=== PATIENT | female | born 1985 | race Caucasian/White ===

== ENCOUNTER 2016-11-10 20:33 | Inpatient (IN) | payer OTHER ==
[~2016-11-10] VITALS: Ht 175.3 cm; Wt 69.5 kg
[2016-11-10] MEDS: PENICILLIN GK 2,500,000 UNITS in DEXTROSE 5% 100 ML IVPB SCH ×2 (00:20→12:20)
[2016-11-10] MEDS ORDERED: FENTANYL PF 100 MCG/2ML ONE ×2 (20:40→21:24)
[2016-11-10] MEDS ORDERED: OXYTOCIN 30U/ 0.9% NaCL 500ML 500 ML IV PRN (20:41)
[2016-11-10] MEDS: D5%-LACTATED RINGERS 1,000 ML IV SCH (20:41)
[2016-11-10] MEDS ORDERED: OXYTOCIN 30U/ 0.9% NaCL 500ML 500 ML IV ONE (20:41)
[2016-11-10] MEDS ORDERED: LIDOCAINE 1%, 20ML ONE ×2 (20:47→21:34)
[2016-11-10] MEDS ORDERED: NEWBORN KIT ONE (20:47)
[2016-11-10] MEDS ORDERED: MISOPROSTOL 200 MCG TABLET ONE (20:48)
[2016-11-10] MEDS ORDERED: OXYTOCIN 30U/ 0.9% NaCL 500ML 500 ML ONE (20:48)
[2016-11-10] MEDS: LACTATED RINGERS 1,000 ML IV SCH ×3 (20:50→22:05)
[2016-11-10] MEDS: FENTANYL PF 100 MCG/2ML IVPush PRN ×2 (20:50→21:29)
[2016-11-10] MEDS: PLEASE ENTER HEIGHT AND WEIGHT MC SCH (21:00)
[2016-11-10] MEDS: PLEASE ENTER ALLERGIES MC SCH ×2 (21:00)
[2016-11-10] MEDS ORDERED: ALUMINUM/MAG/SIMETHICONE 30 ML UDC PO PRN (21:00)
[2016-11-10] MEDS ORDERED: SODIUM CITRATE/CITRIC ACID 30 ML UDC PO PRN (21:00)
[2016-11-10] MEDS ORDERED: ONDANSETRON 2MG/ML, 2ML IVPush PRN (21:00)
[2016-11-10] MEDS ORDERED: PENICILLIN GK 5,000,000 UNITS in DEXTROSE 5% 100 ML IVPB ONE (21:00)
[2016-11-10 21:23] LABS: HEMATOCRIT 38.8 % (34.6-47.8); HEMOGLOBIN 13.3 g/dL (11.7-16.4); WHITE BLOOD COUNT 15.9 x10^3/uL (3.4-10)
[2016-11-10] MEDS ORDERED: FENTANYL/BUPIV./NS/PF 250 ML EPIDCONT ONE ×2 (21:33→21:34)
[2016-11-10] MEDS ORDERED: LIDOCAINE/PF 1.5%-EPI 1:200K, 30ML ONE (21:34)
[2016-11-10] MEDS ORDERED: EPHEDRINE 50 MG/ML, 1ML ONE (21:34)
[2016-11-10] MEDS ORDERED: FENTANYL/BUPIV./NS/PF 250 ML EPIDCONT SCH (22:05)
[2016-11-10] MEDS ORDERED: EPHEDRINE 50 MG/ML, 1ML IVPush PRN (22:30)
[2016-11-10] MEDS ORDERED: LACTATED RINGERS 1,000 ML IVBOLUS PRN (22:30)
[2016-11-10] MEDS ORDERED: NALOXONE 0.4 MG/ML, 1ML IVPush PRN (22:30)
[2016-11-10 23:25] VITALS: BP 105/66
[2016-11-11] MEDS: PENICILLIN GK 2,500,000 UNITS in DEXTROSE 5% 100 ML IVPB SCH ×2 (01:00→05:00)
[2016-11-11] MEDS: OXYTOCIN 30U/ 0.9% NaCL 500ML 500 ML IV SCH ×9 (01:55→22:49)
[2016-11-11] MEDS ORDERED: OXYTOCIN 30U/ 0.9% NaCL 500ML 500 ML ONE (02:44)
[2016-11-11] MEDS ORDERED: ONDANSETRON 2MG/ML, 2ML IV PRN (03:00)
[2016-11-11] MEDS ORDERED: CARBOPROST TROMETHAMINE 250 MCG/ML, 1ML IM PRN (03:00)
[2016-11-11] MEDS ORDERED: ACETAMINOPHEN 325 MG TABLET PO PRN ×2 (03:00)
[2016-11-11] MEDS ORDERED: METHYLERGONOVINE 0.2 MG/ML IM PRN (03:00)
[2016-11-11] MEDS ORDERED: CALCIUM CARBONATE 500 MG TAB.CHEW PO PRN (03:00)
[2016-11-11] MEDS ORDERED: HYDROcodone/APAP 5/325 TABLET PO PRN (03:00)
[2016-11-11] MEDS ORDERED: MISOPROSTOL 200 MCG TABLET PR PRN (03:00)
[2016-11-11] MEDS: IBUPROFEN 600 MG TABLET PO PRN ×3 (04:00→21:00)
[2016-11-11] MEDS ORDERED: IBUPROFEN 600 MG TABLET ONE (04:09)
[2016-11-11] MEDS: D5%-LACTATED RINGERS 1,000 ML IV SCH (04:41)
[2016-11-11] MEDS: PLEASE ENTER HEIGHT AND WEIGHT MC SCH (05:00)
[2016-11-11] MEDS: PLEASE ENTER ALLERGIES MC SCH ×2 (05:00)
[2016-11-11] MEDS: HYDROcodone/APAP 5/325 TABLET PO PRN ×3 (05:05→13:45)
[2016-11-11 05:25] VITALS: BP 101/63
[2016-11-11] MEDS: LACTATED RINGERS 1,000 ML IV SCH (06:05)
[2016-11-11 08:50] VITALS: BP 94/60
[2016-11-11] MEDS: PRENATAL VIT/IRON/FA 1 EACH TABLET PO SCH (09:07)
[2016-11-11] MEDS: DOCUSATE 100 MG CAPSULE PO PRN ×2 (09:07→21:00)
[2016-11-11 10:39] LABS: HEMOGLOBIN 9.4 g/dL (11.7-16.4); WHITE BLOOD COUNT 14.9 x10^3/uL (3.4-10)
[2016-11-11 12:25] VITALS: BP 99/68
[2016-11-11 20:45] VITALS: BP 95/60
[2016-11-12] MEDS: OXYTOCIN 30U/ 0.9% NaCL 500ML 500 ML IV SCH (04:05)
[2016-11-12] MEDS: HYDROcodone/APAP 5/325 TABLET PO PRN (07:29)
[2016-11-12] MEDS: DOCUSATE 100 MG CAPSULE PO PRN (07:29)
[2016-11-12] MEDS: IBUPROFEN 600 MG TABLET PO PRN (07:29)
[2016-11-12] MEDS: PRENATAL VIT/IRON/FA 1 EACH TABLET PO SCH (07:29)
[2016-11-12 08:00] VITALS: BP 102/64
[2016-11-12] MEDS ORDERED: IBUP-1222 PO (09:46)
[2016-11-12] MEDS ORDERED: OXYC-302 PO (09:46)
== END 2016-11-12 13:29 | disposition home or self-care (01) | DRG 774 ==
LOC: LDOP 20:33 → EDIP 20:45 → LDIP 20:50 → 2NW 11-11 04:50
PROVIDERS: ADMIT Obstetrics & Gynecology Gynecology; ATTEND Obstetrics & Gynecology Gynecology
PROC: 10E0XZZ Delivery of Products of Conception, External Approach (ICD-10-PCS; principal; 2016-11-11)
PROC: 0HQ9XZZ Repair Perineum Skin, External Approach (ICD-10-PCS; 2016-11-11)
PROC: 10907ZC Drainage of Amniotic Fluid, Therapeutic from Products of Conception, Via Natural or Artificial Opening (ICD-10-PCS; 2016-11-11)
PROC: 3E0S3CZ (ICD-10-PCS; 2016-11-11)
PROC: 00HU33Z Insertion of Infusion Device into Spinal Canal, Percutaneous Approach (ICD-10-PCS; 2016-11-11)
DX: O69.81X0 Labor and delivery complicated by cord around neck, without compression, not applicable or unspecified (principal); O67.8 Other intrapartum hemorrhage; O99.824 Streptococcus B carrier state complicating childbirth; Z37.0 Single live birth; O76 Abnormality in fetal heart rate and rhythm complicating labor and delivery; O70.0 First degree perineal laceration during delivery; Z3A.39 39 weeks gestation of pregnancy
CPT/HCPCS: 36415; 82803; 85025; 86850; 86900; J2540; J3010; J3490; J2590; J7120

== ENCOUNTER 2018-06-10 07:00 | Inpatient (IN) | payer OTHER ==
[~2018-06-10] VITALS: Ht 175.3 cm; Wt 75.0 kg
[~2018-06-10 07:00] MED LIST: IBUP-1222 PO; OXYC-302 PO
[2018-06-10] MEDS ORDERED: FENTANYL/BUPIV./NS/PF 250 ML EPIDCONT SCH (07:02)
[2018-06-10] MEDS ORDERED: D5%-LACTATED RINGERS 1,000 ML IV SCH (07:08)
[2018-06-10] MEDS ORDERED: OXYTOCIN 30U/ 0.9% NaCL 500ML 500 ML IV ONE (07:08)
[2018-06-10] MEDS ORDERED: LACTATED RINGERS 1,000 ML IV SCH (07:08)
[2018-06-10] MEDS ORDERED: LIDOCAINE 1%, 20ML ONE (07:13)
[2018-06-10] MEDS ORDERED: NEWBORN KIT ONE (07:13)
[2018-06-10] MEDS ORDERED: OXYTOCIN 30U/ 0.9% NaCL 500ML 500 ML ONE ×2 (07:13→10:42)
[2018-06-10] MEDS ORDERED: MISOPROSTOL 200 MCG TABLET ONE (07:13)
[2018-06-10 07:17] VITALS: BP 113/89
[2018-06-10] MEDS ORDERED: PENICILLIN GK 5,000,000 UNITS in DEXTROSE 5% 100 ML IVPB ONE (07:30)
[2018-06-10] MEDS ORDERED: ONDANSETRON 2MG/ML, 2ML IVPush PRN (07:30)
[2018-06-10] MEDS ORDERED: FENTANYL PF 100 MCG/2ML IVPush PRN (07:30)
[2018-06-10] MEDS ORDERED: FENTANYL PF 100 MCG/2ML IV PRN (07:30)
[2018-06-10 07:33] LABS: BASOPHILS # (AUTO) 0.03 x10^3/uL (0-0.1); BASOPHILS % (AUTO) 0 % (0-1); EOSINOPHILS % (AUTO) 0 % (1-7); LYMPHOCYTES # (AUTO) 1.31 x10^3/uL (1-3.4); LYMPHOCYTES % (AUTO) 13 % (22-44); MD NO; MEAN CORPUSCULAR HEMOGLOBIN 27.9 pg (27.0-34.8); MEAN CORPUSCULAR HGB CONC 32.9 g/dL (32.4-35.8); MEAN CORPUSCULAR VOLUME 84.7 fL (80-100); MEAN PLATELET VOLUME 10.4 fL (7.4-10.4); MONOCYTES % (AUTO) 3 % (2-9); NEUTROPHILS # (AUTO) 8.81 x10^3/uL (1.8-6.8); NEUTROPHILS % (AUTO) 84 % (42-75); PLATELET COUNT 130 x10^3/uL (130-400); RED BLOOD COUNT 4.56 x10^6/uL (3.82-5.3); RED CELL DISTRIBUTION WIDTH 15.1 % (9.6-15.2)
[2018-06-10] MEDS ORDERED: PREN1TAB60 PO (07:42)
[2018-06-10] MEDS ORDERED: VALA500T4 PO (07:42)
[2018-06-10] MEDS ORDERED: FENTANYL PF 100 MCG/2ML ONE (08:47)
[2018-06-10] MEDS: OXYTOCIN 30U/ 0.9% NaCL 500ML 500 ML IV SCH ×2 (10:21→20:21)
[2018-06-10] MEDS ORDERED: RHOGAM FROM BLOOD BANK 1 NOTE EA IM/IV ONE (10:30)
[2018-06-10] MEDS ORDERED: CALCIUM CARBONATE 500 MG TAB.CHEW PO PRN (10:30)
[2018-06-10] MEDS ORDERED: ONDANSETRON 2MG/ML, 2ML IV PRN (10:30)
[2018-06-10] MEDS ORDERED: OXYcodone IR 5MG TABLET PO PRN (10:30)
[2018-06-10] MEDS ORDERED: DIPH,PERTUSS(ACELL),TET VAC/PF NC IM-VACC PRN (10:30)
[2018-06-10] MEDS ORDERED: OXYcodone/APAP 5/325MG TABLET PO PRN (10:30)
[2018-06-10] MEDS ORDERED: MISOPROSTOL 200 MCG TABLET PR PRN (10:30)
[2018-06-10] MEDS ORDERED: MEASLES,MUMPS&RUBELLA VACC/PF 0.5 ML SQ-VACC PRN (10:30)
[2018-06-10] MEDS ORDERED: IBUPROFEN 600 MG TABLET ONE (10:42)
[2018-06-10] MEDS: PENICILLIN GK 2,500,000 UNITS in DEXTROSE 5% 100 ML IVPB SCH ×3 (11:30→19:30)
[2018-06-10] MEDS: IBUPROFEN 600 MG TABLET PO PRN (19:24)
[2018-06-10 21:00] VITALS: BP 106/71
[2018-06-11 01:17] VITALS: BP 103/68
[2018-06-11 04:48] VITALS: BP 127/80
[2018-06-11 05:30] VITALS: BP 102/56
[2018-06-11] MEDS: OXYTOCIN 30U/ 0.9% NaCL 500ML 500 ML IV SCH ×3 (05:54→21:59)
[2018-06-11 06:11] LABS: BASOPHILS # (AUTO) 0.03 x10^3/uL (0-0.1); BASOPHILS % (AUTO) 0 % (0-1); EOSINOPHILS % (AUTO) 0 % (1-7); LYMPHOCYTES # (AUTO) 2.07 x10^3/uL (1-3.4); LYMPHOCYTES % (AUTO) 22 % (22-44); MD NO; MEAN CORPUSCULAR HEMOGLOBIN 28.7 pg (27.0-34.8); MEAN CORPUSCULAR HGB CONC 33.4 g/dL (32.4-35.8); MEAN PLATELET VOLUME 9.8 fL (7.4-10.4); MONOCYTES # (AUTO) 0.31 x10^3/uL (0.2-0.8); MONOCYTES % (AUTO) 3 % (2-9); NEUTROPHILS # (AUTO) 7.15 x10^3/uL (1.8-6.8); NEUTROPHILS % (AUTO) 75 % (42-75); PLATELET COUNT 116 x10^3/uL (130-400); RED BLOOD COUNT 3.74 x10^6/uL (3.82-5.3); RED CELL DISTRIBUTION WIDTH 15.2 % (9.6-15.2)
[2018-06-11] MEDS ORDERED: IBUP-1222 PO (08:02)
[2018-06-11] MEDS: PRENATAL VIT/IRON/FA 1 EACH TABLET PO SCH (08:53)
[2018-06-11] MEDS: DOCUSATE 100 MG CAPSULE PO PRN ×2 (08:53→19:47)
[2018-06-11 09:21] VITALS: BP 109/70
[2018-06-11] MEDS: IBUPROFEN 600 MG TABLET PO PRN ×2 (11:53→19:47)
[2018-06-11 19:55] VITALS: BP 104/73
[2018-06-12] MEDS: IBUPROFEN 600 MG TABLET PO PRN ×2 (01:30→07:51)
[2018-06-12 07:30] VITALS: BP 108/70
[2018-06-12] MEDS: PRENATAL VIT/IRON/FA 1 EACH TABLET PO SCH (07:51)
[2018-06-12] MEDS: DOCUSATE 100 MG CAPSULE PO PRN (07:51)
== END 2018-06-12 08:30 | disposition home or self-care (01) | DRG 807 ==
LOC: LDOP 07:00 → LDIP 07:11 → 2NW 19:24
PROVIDERS: ADMIT Obstetrics & Gynecology Gynecology; ATTEND Obstetrics & Gynecology Gynecology
PROC: 0UQMXZZ Repair Vulva, External Approach (ICD-10-PCS; principal; 2018-06-10)
PROC: 10E0XZZ Delivery of Products of Conception, External Approach (ICD-10-PCS; 2018-06-10)
DX: O99.824 Streptococcus B carrier state complicating childbirth (principal); Z37.0 Single live birth; O69.81X0 Labor and delivery complicated by cord around neck, without compression, not applicable or unspecified; Z3A.40 40 weeks gestation of pregnancy; Z80.3 Family history of malignant neoplasm of breast; Z82.3 Family history of stroke; Z83.3 Family history of diabetes mellitus; Z80.8 Family history of malignant neoplasm of other organs or systems; O70.0 First degree perineal laceration during delivery
CPT/HCPCS: 36415; 82803; 85025; 86850; 86900; G0378; J2540; J2590; J7120

== ENCOUNTER 2020-03-14 23:12 | Outpatient (CLI) | payer OTHER ==
[~2020-03-14] VITALS: Ht 175.3 cm; Wt 70.0 kg
[~2020-03-14 23:12] MED LIST changes: -OXYC-302 PO; +OXYC1TAB14 PO; +PREN1TAB60 PO; +VALA500T4 PO
[2020-03-14 23:59] VITALS: BP 120/62
[2020-03-15 00:20] LABS: BASOPHILS % (AUTO) 0 % (0-1); EOSINOPHILS % (AUTO) 1 % (1-7); LYMPHOCYTES % (AUTO) 15 % (22-44); MEAN CORPUSCULAR HEMOGLOBIN 26.9 pg (27.0-34.8); MEAN PLATELET VOLUME 9.9 fL (7.4-10.4); MONOCYTES % (AUTO) 5 % (2-9); NEUTROPHILS % (AUTO) 80 % (42-75); PLATELET COUNT 165 x10^3/uL (130-400); RED BLOOD COUNT 4.43 x10^6/uL (3.82-5.3); RED CELL DISTRIBUTION WIDTH 15.1 % (9.6-15.2)
[2020-03-15 00:21] LABS: MD NO
[2020-03-15 02:55] LABS: MICROSCOPIC INDICATED
== END 2020-03-15 04:12 | disposition home or self-care (01) ==
LOC: LDOP 23:12
PROVIDERS: ATTEND Obstetrics & Gynecology Maternal & Fetal Medicine
DX: O32.1XX0 Maternal care for breech presentation, not applicable or unspecified (principal); O46.93 Antepartum hemorrhage, unspecified, third trimester; Z3A.30 30 weeks gestation of pregnancy; Z3A.31 31 weeks gestation of pregnancy
CPT/HCPCS: 36415; 59025; 76805; 81001; 85025; 85460; 86850; 86900; 87086

== ENCOUNTER 2020-03-22 23:03 | Inpatient (IN) | payer OTHER ==
[~2020-03-22] VITALS: Ht 175.3 cm; Wt 72.0 kg
[2020-03-23] MEDS ORDERED: OXYTOCIN 30U/ 0.9% NaCL 500ML 500 ML IV ONE (00:30)
[2020-03-23] MEDS ORDERED: FENTANYL PF 100 MCG/2ML IVPush PRN ×2 (00:30)
[2020-03-23] MEDS ORDERED: ONDANSETRON 2MG/ML, 2ML IVPush PRN ×2 (00:30→10:00)
[2020-03-23] MEDS ORDERED: DIPHENHYDRAMINE 50 MG CAPSULE PO PRN (00:30)
[2020-03-23] MEDS ORDERED: DIPHENHYDRAMINE 25 MG CAPSULE PO PRN (01:00)
[2020-03-23 01:20] LABS: BASOPHILS % (AUTO) 0 % (0-1); EOSINOPHILS % (AUTO) 1 % (1-7); LYMPHOCYTES % (AUTO) 12 % (22-44); MEAN CORPUSCULAR HEMOGLOBIN 27.8 pg (27.0-34.8); MEAN CORPUSCULAR HGB CONC 33.8 g/dL (32.4-35.8); MEAN PLATELET VOLUME 9.8 fL (7.4-10.4); MONOCYTES % (AUTO) 6 % (2-9); NEUTROPHILS % (AUTO) 81 % (42-75); PLATELET COUNT 154 x10^3/uL (130-400); RED BLOOD COUNT 4.33 x10^6/uL (3.82-5.3); RED CELL DISTRIBUTION WIDTH 16.1 % (9.6-15.2)
[2020-03-23 01:24] LABS: MICROSCOPIC INDICATED
[2020-03-23] MEDS ORDERED: MISOPROSTOL 25 MCG TABLET ONE ×2 (01:24→06:42)
[2020-03-23 01:25] LABS: MD NO
[2020-03-23] MEDS ORDERED: ACETAMINOPHEN 325 MG TABLET ONE ×2 (01:25→17:52)
[2020-03-23] MEDS ORDERED: ZOLPIDEM 5MG TABLET ONE (01:25)
[2020-03-23 01:28] LABS: AMPHETAMINE SCREEN, URINE Negative (Negative); BARBITURATE SCREEN, URINE Negative (Negative); BENZODIAZEPINE SCREEN, URINE Negative (Negative); CANNABINOID SCREEN, URINE Negative (Negative); COCAINE SCREEN, URINE Negative (Negative); METHADONE SCREEN, URINE Negative (Negative); OPIATE SCREEN, URINE Negative (Negative)
[2020-03-23] MEDS: MISOPROSTOL 25 MCG TABLET VG SCH ×2 (01:30→06:46)
[2020-03-23 01:31] LABS: INTERNATIONAL NORMALIZED RATIO 0.9 (0.93-1.1); PROTHROMBIN TIME 9.6 Seconds (9.6-11.5)
[2020-03-23] MEDS: ACETAMINOPHEN 325 MG TABLET PO PRN ×2 (01:33→17:54)
[2020-03-23 01:39] LABS: CREATININE 0.53 mg/dL (0.55-1.02); FREE T4 (FREE THYROXINE) 1.02 ng/dL (0.76-1.46)
[2020-03-23] MEDS ORDERED: ZOLPIDEM 5MG TABLET PO PRN (02:00)
[2020-03-23] MEDS: LACTATED RINGERS 1,000 ML IV SCH ×3 (08:52→09:37)
[2020-03-23] MEDS ORDERED: BUPIVACAINE 0.25% ONE ×2 (08:57→19:33)
[2020-03-23] MEDS ORDERED: FENTANYL/BUPIV./NS/PF 250 ML EPIDCONT ONE (08:57)
[2020-03-23] MEDS ORDERED: FENTANYL/BUPIV./NS/PF 250 ML EPIDCONT SCH (10:00)
[2020-03-23] MEDS ORDERED: DIPHENHYDRAMINE 50 MG/ML, 1ML IVPush PRN (10:00)
[2020-03-23] MEDS ORDERED: LACTATED RINGERS 1,000 ML IV SCH (10:00)
[2020-03-23] MEDS ORDERED: LACTATED RINGERS 1,000 ML IVBOLUS PRN (10:00)
[2020-03-23] MEDS ORDERED: NALOXONE 0.4 MG/ML, 1ML IVPush PRN (10:00)
[2020-03-23] MEDS ORDERED: EPHEDRINE 50 MG/ML, 1ML IVPush PRN (10:00)
[2020-03-23] MEDS ORDERED: FAMOTIDINE 20 MG TABLET PO SCH (13:00)
[2020-03-23] MEDS ORDERED: FAMOTIDINE 20 MG TABLET ONE (13:01)
[2020-03-23] MEDS ORDERED: MISOPROSTOL 200 MCG TABLET ONE (16:14)
[2020-03-23] MEDS ORDERED: LIDOCAINE 1%, 20ML ONE (16:14)
[2020-03-23] MEDS ORDERED: OXYTOCIN 30U/ 0.9% NaCL 500ML 500 ML ONE ×2 (16:14→21:09)
[2020-03-23] MEDS ORDERED: OXYTOCIN 30U/ 0.9% NaCL 500ML 500 ML IV PRN (16:30)
[2020-03-23] MEDS ORDERED: ONDANSETRON 2MG/ML, 2ML ONE (18:20)
[2020-03-23] MEDS ORDERED: FENTANYL PF 100 MCG/2ML ONE ×2 (19:33→19:59)
[2020-03-23] MEDS ORDERED: LIDOCAINE/MPF 2%-EPI 1:200K, 20 ML ONE (20:30)
[2020-03-23] MEDS ORDERED: SODIUM BICARBONATE 1 MEQ/ML, 50ML VIAL ONE (20:30)
[2020-03-23] MEDS ORDERED: CEFAZOLIN PMX 1GM/50ML 50 ML IV ONE (20:40)
[2020-03-23 20:53] VITALS: BP 112/66
[2020-03-23] MEDS ORDERED: CARBOPROST TROMETHAMINE 250 MCG/ML, 1ML IM PRN (21:00)
[2020-03-23] MEDS ORDERED: DIPH,PERTUSS(ACELL),TET VAC/PF NC IM-VACC PRN (21:00)
[2020-03-23] MEDS ORDERED: OXYcodone/APAP 5/325MG TABLET PO PRN ×2 (21:00)
[2020-03-23] MEDS ORDERED: METHYLERGONOVINE 0.2 MG/ML IM PRN (21:00)
[2020-03-23] MEDS ORDERED: ACETAMINOPHEN 325 MG TABLET PO PRN ×2 (21:00)
[2020-03-23] MEDS ORDERED: OXYTOCIN 30U/ 0.9% NaCL 500ML 500 ML IV SCH (21:00)
[2020-03-23] MEDS ORDERED: RHOGAM FROM BLOOD BANK 1 NOTE EA IM/IV ONE (21:00)
[2020-03-23] MEDS ORDERED: SIMETHICONE 80 MG CHEW TAB PO PRN (21:00)
[2020-03-23] MEDS ORDERED: DOCUSATE 100 MG CAPSULE PO PRN (21:00)
[2020-03-24] MEDS ORDERED: IBUPROFEN 600 MG TABLET ONE ×2 (02:18→08:06)
[2020-03-24] MEDS: IBUPROFEN 600 MG TABLET PO PRN ×2 (02:20→08:08)
[2020-03-24 05:28] LABS: BASOPHILS % (AUTO) 0 % (0-1); EOSINOPHILS % (AUTO) 1 % (1-7); LYMPHOCYTES % (AUTO) 12 % (22-44); MEAN CORPUSCULAR HEMOGLOBIN 28.1 pg (27.0-34.8); MEAN CORPUSCULAR HGB CONC 33.7 g/dL (32.4-35.8); MEAN PLATELET VOLUME 9.1 fL (7.4-10.4); MONOCYTES % (AUTO) 5 % (2-9); NEUTROPHILS % (AUTO) 82 % (42-75); PLATELET COUNT 105 x10^3/uL (130-400); RED BLOOD COUNT 3.62 x10^6/uL (3.82-5.3); RED CELL DISTRIBUTION WIDTH 15.9 % (9.6-15.2)
[2020-03-24 05:30] LABS: MD NO
[2020-03-24] MEDS ORDERED: PRENATAL VIT/IRON/FA 1 EACH TABLET PO SCH (09:00)
== END 2020-03-24 12:30 | disposition home or self-care (01) | DRG 806 ==
LOC: LDOP 23:03 → LDIP 03-23 00:22
PROVIDERS: ADMIT Obstetrics & Gynecology Maternal & Fetal Medicine; ATTEND Obstetrics & Gynecology Maternal & Fetal Medicine
PROC: 10D17Z9 Manual Extraction of Products of Conception, Retained, Via Natural or Artificial Opening (ICD-10-PCS; principal; 2020-03-23)
PROC: 10E0XZZ Delivery of Products of Conception, External Approach (ICD-10-PCS; 2020-03-23)
DX: O32.1XX0 Maternal care for breech presentation, not applicable or unspecified (principal); O36.4XX0 Maternal care for intrauterine death, not applicable or unspecified; Z37.1 Single stillbirth; Z3A.31 31 weeks gestation of pregnancy; Z80.1 Family history of malignant neoplasm of trachea, bronchus and lung; Z80.3 Family history of malignant neoplasm of breast
CPT/HCPCS: 36415; 80074; 80307; 81001; 82565; 82947; 83036; 84439; 84443; 85025; 85300; 85301; 85384; 85460; 85598; 85610; 85613; 85670; 85730; 85732; 86146; 86147; 86592; 86644; 86645; 86694; 86695; 86696; 86747; 86762; 86777; 86778; 86850; 86900; 87040; 87086; 87147; 87252; 87635; 88300; 88305; G0378; J0690; J2405; J3010; J2590; J7120